=== PATIENT | male | born 1990 | race Two or more races ===

== ENCOUNTER 2016-10-05 19:28 | Emergency (ER) | payer OTHER ==
[~2016-10-05] VITALS: Ht 182.9 cm; Wt 83.4 kg
[~2016-10-05 19:28] MED LIST: KEFLEX500 MG PO; NAPROSYN500 MG PO; NAPROXEN500 MG PO; TYLENOL WITH C1 EACH PO
[2016-10-05 21:30] VITALS: BP 125/79
== END 2016-10-05 21:30 | disposition home or self-care (01) ==
LOC: EME 19:28 → EXP 19:28
DX: S40.211A Abrasion of right shoulder, initial encounter (principal); S20.411A Abrasion of right back wall of thorax, initial encounter; S50.811A Abrasion of right forearm, initial encounter; S00.81XA Abrasion of other part of head, initial encounter; S00.511A Abrasion of lip, initial encounter; S10.81XA Abrasion of other specified part of neck, initial encounter; S00.03XA Contusion of scalp, initial encounter; S20.222A Contusion of left back wall of thorax, initial encounter; S20.211A Contusion of right front wall of thorax, initial encounter; Y04.8XXA Assault by other bodily force, initial encounter; Y08.02XA Assault by strike by baseball bat, initial encounter; Y01.XXXA Assault by pushing from high place, initial encounter; F17.200 Nicotine dependence, unspecified, uncomplicated
CPT/HCPCS: 71010; 72050; 99281; 99283

== ENCOUNTER 2016-11-16 17:11 | Emergency (ER) | payer OTHER ==
[~2016-11-16] VITALS: Ht 182.9 cm; Wt 80.8 kg
[2016-11-16 18:01] LABS: HEMATOCRIT 41.6 % (38.0-50.0); MCH 31.6 PG (29.0-34.0); MCHC 33.7 G/DL (30.0-36.0); MCV 93.9 FL (86-99); PLATELET COUNT 222 K/uL (156-360); RBC DIS.WIDTH-CV 13.2 % (11.8-14.6); RBC DIS.WIDTH-SD 43.7 % (39-53); RED BLOOD COUNT 4.43 M/uL (4.00-5.50); WHITE BLOOD COUNT 7.4 K/uL (4.1-10.2)
[2016-11-16 18:10] LABS: CHLORIDE 108 mEq/L (99-109); POTASSIUM 3.9 mEq/L (3.7-5.4); SODIUM 143 mEq/L (136-147)
[2016-11-16 18:12] LABS: ADD MIUA? NO; BILIRUBIN NEGATIVE; BLOOD NEGATIVE; COLOR YELLOW ((YELLOW)); GLUCOSE (STRIP) NEGATIVE; KETONES NEGATIVE; LEUKOCYTES NEGATIVE; NITRITE NEGATIVE; PROTEIN (STRIP) NEGATIVE; SPECIFIC GRAVITY 1.019 (1.000-1.030); UROBILINOGEN 0.2 MG/DL (0.2-1.0)
[2016-11-16 18:12] LABS: GLUCOSE 100 mg/dL (70-99)
[2016-11-16 18:13] LABS: ANION GAP 9 MEQ/L (2-14)
[2016-11-16 18:14] LABS: TOTAL BILIRUBIN 0.4 mg/dL (0.0-1.0)
[2016-11-16 18:16] LABS: ALKALINE PHOSPHATASE 47 IU/L (3-129); GFR ESTIMATE (CALCULATED) > 59 mL/min/
[2016-11-16 18:17] LABS: UREA NITROGEN (BUN) 12 mg/dL (9-23)
[2016-11-16 19:05] VITALS: BP 129/84
== END 2016-11-16 19:06 | disposition home or self-care (01) ==
LOC: EME 17:11
PROVIDERS: Nurse Practitioner Family
DX: R19.7 Diarrhea, unspecified (principal); R51 Headache; H53.149 Visual discomfort, unspecified; H93.19 Tinnitus, unspecified ear; F17.200 Nicotine dependence, unspecified, uncomplicated
CPT/HCPCS: 80053; 81003; 85027; 99281; 99283; J1885

== ENCOUNTER 2017-07-05 14:21 | Emergency (ER) | payer OTHER ==
[~2017-07-05] VITALS: Ht 182.9 cm; Wt 78.2 kg
[2017-07-05 15:15] VITALS: BP 153/86
== END 2017-07-05 15:16 ==
LOC: EME 14:21
DX: F19.10 Other psychoactive substance abuse, uncomplicated (principal); F17.200 Nicotine dependence, unspecified, uncomplicated
CPT/HCPCS: 99281; 99284

== ENCOUNTER 2017-07-20 16:54 | Emergency (ER) | payer OTHER ==
[~2017-07-20] VITALS: Ht 182.9 cm; Wt 84.9 kg
[2017-07-20 17:44] LABS: HEMATOCRIT 43.5 % (38.0-50.0); MCH 31.1 PG (29.0-34.0); MCHC 34.3 G/DL (30.0-36.0); MCV 90.8 FL (86-99); MEAN PLAT.VOLUME 8.6 uM^3 (9.0-12.4); PLATELET COUNT 285 K/uL (156-360); RBC DIS.WIDTH-CV 12.1 % (11.8-14.6); RBC DIS.WIDTH-SD 40.5 % (39-53); RED BLOOD COUNT 4.79 M/uL (4.00-5.50); WHITE BLOOD COUNT 9.5 K/uL (4.1-10.2)
[2017-07-20 17:54] LABS: CHLORIDE 101 mEq/L (99-109); POTASSIUM 3.8 mEq/L (3.7-5.4); SODIUM 139 mEq/L (136-147)
[2017-07-20 17:56] LABS: GLUCOSE 101 mg/dL (70-99)
[2017-07-20 17:57] LABS: ANION GAP 12 MEQ/L (2-14)
[2017-07-20 18:00] LABS: GFR ESTIMATE (CALCULATED) > 59 mL/min/
[2017-07-20 18:01] LABS: UREA NITROGEN (BUN) 20 mg/dL (9-23)
[2017-07-20 18:13] LABS: BILIRUBIN NEGATIVE; BLOOD NEGATIVE; COLOR YELLOW ((YELLOW)); GLUCOSE (STRIP) NEGATIVE; KETONES NEGATIVE; LEUKOCYTES NEGATIVE; NITRITE NEGATIVE; PROTEIN (STRIP) NEGATIVE; SPECIFIC GRAVITY 1.025 (1.000-1.030)
[2017-07-20 18:14] LABS: ADD MIUA? NO; UCUL ADDED? NO
[2017-07-20 18:39] LABS: INTERNAL CONTROL VALID? YES; MONOSPOT (MONONUCLEOSIS SEROL) NEGATIVE
[2017-07-20 20:12] VITALS: BP 128/84
== END 2017-07-20 20:12 | disposition home or self-care (01) ==
LOC: EME 16:54
PROVIDERS: Physician Assistant Medical
DX: H43.393 Other vitreous opacities, bilateral (principal); R10.9 Unspecified abdominal pain; F17.200 Nicotine dependence, unspecified, uncomplicated
CPT/HCPCS: 80048; 81003; 85027; 86308; 87177; 87493; 87506; 99281; 99283

== ENCOUNTER 2017-07-26 17:20 | Emergency (ER) | payer OTHER ==
[~2017-07-26] VITALS: Ht 182.9 cm; Wt 85.4 kg
[2017-07-26 18:21] LABS: HEMATOCRIT 41.7 % (38.0-50.0); MCH 31.4 PG (29.0-34.0); MCHC 34.1 G/DL (30.0-36.0); MCV 92.3 FL (86-99); MEAN PLAT.VOLUME 8.9 uM^3 (9.0-12.4); PLATELET COUNT 278 K/uL (156-360); RBC DIS.WIDTH-CV 12.3 % (11.8-14.6); RBC DIS.WIDTH-SD 42.3 % (39-53); RED BLOOD COUNT 4.52 M/uL (4.00-5.50); WHITE BLOOD COUNT 10.2 K/uL (4.1-10.2)
[2017-07-26 18:32] LABS: CHLORIDE 103 mEq/L (99-109); POTASSIUM 4.1 mEq/L (3.7-5.4); SODIUM 142 mEq/L (136-147)
[2017-07-26 18:33] LABS: ADD MIUA? NO; BILIRUBIN NEGATIVE; BLOOD NEGATIVE; COLOR YELLOW ((YELLOW)); GLUCOSE (STRIP) NEGATIVE; KETONES NEGATIVE; LEUKOCYTES NEGATIVE; NITRITE NEGATIVE; PROTEIN (STRIP) NEGATIVE; SPECIFIC GRAVITY 1.025 (1.000-1.030); UCUL ADDED? NO
[2017-07-26 18:35] LABS: GLUCOSE 100 mg/dL (70-99)
[2017-07-26 18:36] LABS: ANION GAP 12 MEQ/L (2-14)
[2017-07-26 18:37] LABS: TOTAL BILIRUBIN 0.6 mg/dL (0.0-1.0)
[2017-07-26 18:38] LABS: ALKALINE PHOSPHATASE 54 IU/L (3-129); GFR ESTIMATE (CALCULATED) > 59 mL/min/
[2017-07-26 18:39] LABS: UREA NITROGEN (BUN) 23 mg/dL (9-23)
[2017-07-26 19:55] VITALS: BP 135/89
== END 2017-07-26 19:57 | disposition home or self-care (01) ==
LOC: EME 17:20
PROVIDERS: Physician Assistant Medical
DX: R19.7 Diarrhea, unspecified (principal); R10.9 Unspecified abdominal pain; R11.0 Nausea; F17.200 Nicotine dependence, unspecified, uncomplicated
CPT/HCPCS: 74177; 80053; 81003; 85027; 99281; 99283; J7030

== ENCOUNTER 2018-01-20 19:12 | Emergency (ER) | payer OTHER ==
[~2018-01-20] VITALS: Ht 185.4 cm; Wt 75.5 kg
[2018-01-20 19:32] VITALS: BP 172/113
== END 2018-01-20 20:00 | disposition left against medical advice (07) ==
LOC: EME 19:12
DX: F16.129 Hallucinogen abuse with intoxication, unspecified (principal); F17.200 Nicotine dependence, unspecified, uncomplicated
CPT/HCPCS: 99281; 99283

== ENCOUNTER 2018-02-14 02:42 | Observation (INO) | payer OTHER ==
[~2018-02-14] VITALS: Ht 185.4 cm; Wt 88.0 kg
[2018-02-14 03:28] LABS: HEMATOCRIT 41.4 % (38.0-50.0); HEMOGLOBIN 14.5 G/DL (12.5-16.6); MCH 31.9 PG (29.0-34.0); MCV 91.2 FL (86-99); PLATELET COUNT 256 K/uL (156-360); RBC DIS.WIDTH-CV 12.9 % (11.8-14.6); RBC DIS.WIDTH-SD 43.5 % (39-53); RED BLOOD COUNT 4.54 M/uL (4.00-5.50); WHITE BLOOD COUNT 10.3 K/uL (4.1-10.2)
[2018-02-14 03:37] LABS: CHLORIDE 102 mEq/L (99-109); POTASSIUM 3.6 mEq/L (3.7-5.4); SODIUM 137 mEq/L (136-147)
[2018-02-14 03:38] LABS: GLUCOSE 95 mg/dL (70-99)
[2018-02-14 03:42] LABS: GFR ESTIMATE (CALCULATED) > 59 mL/min/ (58.99-99999)
[2018-02-14 03:43] LABS: UREA NITROGEN (BUN) 11 mg/dL (9-23)
[2018-02-14 04:02] LABS: CREATINE KINASE 10736 IU/L (1-294)
[2018-02-14 05:11] LABS: APPEARANCE CLEAR ((CLEAR)); BILIRUBIN NEGATIVE; BLOOD NEGATIVE; COLOR YELLOW ((YELLOW)); GLUCOSE (STRIP) NEGATIVE; KETONES 5; LEUKOCYTES NEGATIVE; NITRITE NEGATIVE; PROTEIN (STRIP) NEGATIVE; UROBILINOGEN 0.2 MG/DL (0.2-1.0)
[2018-02-14 05:34] LABS: THC CANNABINOIDS NEGATIVE (50 ng/mL)
[2018-02-14 05:35] LABS: AMPHETAMINE NEGATIVE (500 ng/mL); BARBITURATES NEGATIVE (200 ng/mL); BENZODIAZEPINES NEGATIVE (150 ng/mL); BUPRENORPHINE NEGATIVE (10 ng/mL); COCAINE NEGATIVE (150 ng/mL); METHADONE NEGATIVE (200 ng/mL); METHAMPHETAMINE NEGATIVE (500 ng/mL); OPIATES (MORPHINE) NEGATIVE (100 ng/mL); OXYCODONE NEGATIVE (100 ng/mL); PHENCYCLIDINE PRESUMPTIVE POSITIVE (25 ng/mL); PROPOXYPHENE NEGATIVE (300 ng/mL); TRICYCLIC ANTIDEPRESSANTS NEGATIVE (300 ng/mL)
[2018-02-14 05:38] LABS: SERUM ETHYL ALCOHOL < 10 mg/dL
[2018-02-14 06:26] VITALS: BP 127/78
[2018-02-14 12:14] VITALS: BP 122/64
[2018-02-14 13:19] LABS: APPEARANCE CLEAR ((CLEAR)); BILIRUBIN NEGATIVE; BLOOD NEGATIVE; COLOR STRAW ((YELLOW)); GLUCOSE (STRIP) NEGATIVE; KETONES NEGATIVE; LEUKOCYTES NEGATIVE; NITRITE NEGATIVE; PROTEIN (STRIP) NEGATIVE; SPECIFIC GRAVITY 1.009 (1.000-1.030); UCUL ADDED? NO; UROBILINOGEN 0.2 MG/DL (0.2-1.0)
[2018-02-14 14:57] LABS: BARBITURATES NEGATIVE (200 ng/mL); BUPRENORPHINE NEGATIVE (10 ng/mL); COCAINE NEGATIVE (150 ng/mL); METHADONE NEGATIVE (200 ng/mL); METHAMPHETAMINE NEGATIVE (500 ng/mL); OPIATES (MORPHINE) NEGATIVE (100 ng/mL); OXYCODONE NEGATIVE (100 ng/mL); PHENCYCLIDINE PRESUMPTIVE POSITIVE (25 ng/mL); PROPOXYPHENE NEGATIVE (300 ng/mL); THC CANNABINOIDS NEGATIVE (50 ng/mL); TRICYCLIC ANTIDEPRESSANTS NEGATIVE (300 ng/mL)
[2018-02-14 14:58] LABS: AMPHETAMINE NEGATIVE (500 ng/mL); BENZODIAZEPINES PRESUMPTIVE POSITIVE (150 ng/mL)
[2018-02-14 15:56] VITALS: BP 111/65
[2018-02-14 16:04] LABS: BENZODIAZEPINES, URINE SCREEN Negative (200 ng/mL)
[2018-02-14 19:45] VITALS: BP 124/77
[2018-02-14 23:17] VITALS: BP 124/80
[2018-02-15 01:42] VITALS: BP 127/72
[2018-02-15 07:30] VITALS: BP 125/68
[2018-02-15 09:11] LABS: ALBUMIN 3.6 G/DL (3.2-4.8); ALKALINE PHOSPHATASE 38 IU/L (3-129); ALT (GPT) 49 IU/L (3-49); AST (GOT) 64 IU/L (2-34); CHLORIDE 105 MEQ/L (99-109); CREATININE 0.8 MG/DL (0.6-1.3); GFR ESTIMATE (CALCULATED) > 59 mL/min/ (58.99-99999); GLUCOSE 87 mg/dL (70-99); SODIUM 139 MEQ/L (136-147); TOTAL BILIRUBIN 0.5 MG/DL (0.0-1.0); TOTAL PROTEIN 5.5 G/DL (6.4-8.3); UREA NITROGEN (BUN) 6 mg/dL (9-23)
[2018-02-15 09:34] LABS: CREATINE KINASE 4404 IU/L (1-294); POTASSIUM 4.4 MEQ/L (3.7-5.4)
== END 2018-02-15 11:55 | disposition home or self-care (01) ==
LOC: EME 02:42 → EDOF 05:15 → 4SOUTH 05:15 → EDOF 05:15 → ENRESERV 05:19 → 4SOUTH 06:25 → ENPENDDIS 02-15 → 4SOUTH 02-15 11:55
PROVIDERS: Physician Assistant; Physician Assistant Medical
DX: M62.82 Rhabdomyolysis (principal); F16.10 Hallucinogen abuse, uncomplicated; Z72.89 Other problems related to lifestyle; Z87.891 Personal history of nicotine dependence; Z83.3 Family history of diabetes mellitus
CPT/HCPCS: 71045; 80048; 80053; 81003; 82550; 82550 91; 84999; 85027; 93005; 99281; 99285; G0378; G0480; J2060; J3480; J7030